=== PATIENT | male | born 1995 | race Caucasian/White ===

== ENCOUNTER 2016-05-14 20:10 | Observation (INO) | payer OTHER ==
[~2016-05-14] VITALS: Ht 200.7 cm; Wt 157.9 kg
[2016-05-14] MEDS ORDERED: KETOROLAC TROMETHAMINE 30 MG/ML VIAL IV STA (21:31)
[2016-05-14] MEDS ORDERED: SODIUM CHLORIDE 0.9% 1000ML 1,000 ML IV STA (21:31)
[2016-05-14] MEDS ORDERED: ONDANSETRON INJ 2 MG/ML 2 ML VIAL IV STA (21:31)
[2016-05-14 21:48] LABS: BASO % 0.6 %; BASO ABS # 0.07 K/uL (0-0.2); COMPLETE YES; EOS % 3.2 %; HEMATOCRIT 44.2 % (42-52); IG% 0.3 %; LYMPH % 28.9 %; LYMPH ABS # 3.28 K/uL (1.2-3.4); MEAN CELL VOLUME 79.4 fL (80-100); MEAN CORPUSCULAR HGB CONC 35.3 g/dl (32-36); MONO % 9.2 %; NEUT % 57.8 %; PLATELET COUNT 230 K/uL (130-400); RED BLOOD COUNT 5.57 M/uL (4.7-6.1); WHITE BLOOD COUNT 11.36 K/uL (4.8-10.8)
--- NOTE | 2016-05-14 21:58 | DIAGNOSTIC IMAGING REPORT ---
CT SCAN OF THE ABDOMEN AND PELVIS WITHOUT CONTRAST CLINICAL HISTORY: Right flank pain COMPARISON STUDY: No previous studies for comparison. TECHNIQUE: CT scan of the abdomen and pelvis was performed from the lung bases to the proximal femurs. Images are reviewed in the axial, sagittal, and coronal planes. IV contrast was not administered for this examination. CT DOSE: 1844.68 mGy.cm FINDINGS: Lower chest: The heart is normal in size and configuration, without pericardial effusion. The lung bases and pleural spaces are clear. Liver: There is hepatic steatosis. No focal masses are visualized. Gallbladder: Unremarkable. Spleen: There is mild splenomegaly (14 cm) Pancreas: Unremarkable. Adrenal glands: Unremarkable. Kidneys: No renal, ureteral, or bladder calculi are visualized. Bowel: There are no transition zones indicate bowel obstruction. There is periappendiceal edema. The appendix measures 9 mm. In the setting of right sided abdominal pain, the findings are indicative of acute appendicitis. Peritoneum: There is no intraperitoneal free air or abdominal ascites. Vasculature: The abdominal aorta is normal in course and caliber. Adenopathy: There are mildly prominent mesenteric lymph nodes. There is also a prominent lymph node in the gastrohepatic ligament region. These are likely reactive. Pelvic viscera: The bladder, and pelvic viscera are unremarkable. Skeletal structures: There are bilateral supra-acetabular deformities. These appear old. IMPRESSION: 1. CT findings indicative of acute appendicitis. Surgical consultation is recommended 2. No evidence of bowel obstruction. No evidence of free air 3. Hepatic steatosis. Mild splenomegaly. Electronically signed by: Marcelino Chery M.D. 05/14/2016 9:57 PM Dictated Date/Time: 05/14/2016 9:52 PM
[2016-05-14 22:04] LABS: ALT/SGPT 103 U/L (12-78); BLOOD UREA NITROGEN 16 mg/dl (7-18); BUN/CREATININE RATIO 12.2 (10-20); CARBON DIOXIDE 28 mmol/L (21-32); CHLORIDE 106 mmol/L (98-107); GLUCOSE 89 mg/dl (70-99); SODIUM 142 mmol/L (136-145)
[2016-05-14 22:07] LABS: ALKALINE PHOSPHATASE 64 U/L (45-117); AST/SGOT 34 U/L (15-37)
[2016-05-14] MEDS ORDERED: CEFOXITIN SOD 2 GM VIAL IV STA ×2 (22:09→22:54)
--- NOTE | 2016-05-14 22:55 | EMERGENCY ROOM VISIT NOTE ---
History Report prepared by Inga: Morena Vital Under the Supervision of: Dr. Thomas Jamison M.D. First contact with patient: 21:26 Chief Complaint: ABDOMINAL PAIN Stated Complaint: COMPLETE RT SIDE ABDOMINAL PAIN Nursing Triage Summary: pt c/o lower right abd pain started yesterday History of Present Illness The patient is a 21 year old male who presents to the Emergency Room with complaints of intermittent deep right sided abdominal pain beginning yesterday. The patient states that his pain is now radiating into his back and is worsened with movement and deep breaths. He complains of back pain. He notes that he started an intermittent fasting diet this week and has been drinking carbonated water and coffee which is unusual for him. Source of History: patient Onset: yesterday Position: abdomen (RLQ) Quality: other (deep) Timing: intermittent Modifying Factors (Worsening): breathing, movement Associated Symptoms: + back pain Review of Systems See HPI for pertinent positives & negatives. A total of 10 systems reviewed and were otherwise negative. Past Medical & Surgical Medical Problems: (1) No Known Active Medical Problems Surgical Problems: (1) S/P appendectomy Family History No pertinent family history stated. Social History Smoking Status: Never Smoker Alcohol Use: occasionally Marital Status: single Housing Status: lives with roommate Occupation Status: [employer] student Current/Historical Medications Scheduled Ascorbic Acid (Vitamin C), 500 MG PO DAILY Multivitamin (Multivitamin), 1 TAB PO DAILY Fontanelle-3 Fatty Acids (Fish Oil), 1 CAP PO DAILY Scheduled PRN Oxycodone/Acetaminophen 5MG/325MG (Percocet 5MG/325MG), 1 TAB PO Q4H PRN for Pain Allergies Coded Allergies: POLLEN (Verified Allergy, Unknown, seasonal, 05/14/16) Physical Exam Vital Signs Date Time Temp Pulse Resp B/P Pulse Ox O2 Delivery O2 Flow Rate FiO2 05/15/16 02:15 80 13 152/73 95 Nasal Cannula 4 05/15/16 02:05 36.3 77 15 159/89 96 Nasal Cannula 4 05/15/16 01:55 86 21 161/86 92 Nasal Cannula 3 05/15/16 01:45 82 22 157/91 99 Mask 10 05/15/16 01:35 88 22 173/89 100 Mask 10 05/15/16 01:27 36.1 92 23 169/99 100 Mask 10 05/14/16 23:45 88 16 188/87 100 Room Air 05/14/16 22:37 95 21 109/105 99 Room Air 05/14/16 20:14 36.9 79 18 168/79 99 Room Air Physical Exam GENERAL: Patient is a healthy-appearing well-nourished HEAD: Normocephalic atraumatic EYES: Ocular movements intact pupils equal and react to light OROPHARYNX mucous membranes are moist no exudates present no erythema or edema present NECK: Supple no nuchal rigidity CHEST: Good equal expansion LUNGS: Clear and equal to auscultation CARDIAC: Normal S1 and S2 ABDOMEN: Soft tender to the RLQ no guarding BACK: No CVA tenderness EXTREMITIES: No pain upon palpation normal muscle strength in all groups no clubbing cyanosis or edema NEURO: Patient is following commands is answering questions appropriately. Alert and oriented x3 Cranial Nerves 2-12 grossly intact Medical Decision & Procedures ER Provider Diagnostic Interpretation: CT results as stated below per my review and radiologist interpretation: CT SCAN OF THE ABDOMEN AND PELVIS WITHOUT CONTRAST FINDINGS: Lower chest: The heart is normal in size and configuration, without pericardial effusion. The lung bases and pleural spaces are clear. Liver: There is hepatic steatosis. No focal masses are visualized. Gallbladder: Unremarkable. Spleen: There is mild splenomegaly (14 cm) Pancreas: Unremarkable. Adrenal glands: Unremarkable. Kidneys: No renal, ureteral, or bladder calculi are visualized. Bowel: There are no transition zones indicate bowel obstruction. There is periappendiceal edema. The appendix measures 9 mm. In the setting of right sided abdominal pain, the findings are indicative of acute appendicitis. Peritoneum: There is no intraperitoneal free air or abdominal ascites. Vasculature: The abdominal aorta is normal in course and caliber. Adenopathy: There are mildly prominent mesenteric lymph nodes. There is also a prominent lymph node in the gastrohepatic ligament region. These are likely reactive. Pelvic viscera: The bladder, and pelvic viscera are unremarkable. Skeletal structures: There are bilateral supra-acetabular deformities. These appear old. IMPRESSION: 1. CT findings indicative of acute appendicitis. Surgical consultation is recommended 2. No evidence of bowel obstruction. No evidence of free air 3. Hepatic steatosis. Mild splenomegaly. Electronically signed by: Marcelino Chery M.D. 05/14/2016 9:57 PM Dictated Date/Time: 05/14/2016 9:52 PM Laboratory Results 05/14/16 21:30 Red Blood Count 5.57, Mean Corpuscular Volume 79.4, Mean Corpuscular Hemoglobin 28.0, Mean Corpuscular Hemoglobin Concent 35.3, Mean Platelet Volume 10.0, Neutrophils (%) (Auto) 57.8, Lymphocytes (%) (Auto) 28.9, Monocytes (%) (Auto) 9.2, Eosinophils (%) (Auto) 3.2, Basophils (%) (Auto) 0.6, Neutrophils # (Auto) 6.57, Lymphocytes # (Auto) 3.28, Monocytes # (Auto) 1.05, Eosinophils # (Auto) 0.36, Basophils # (Auto) 0.07 05/14/16 21:30 Test 05/14/16 21:30 White Blood Count 11.36 K/uL (4.8-10.8) Red Blood Count 5.57 M/uL (4.7-6.1) Hemoglobin 15.6 g/dL (14.0-18.0) Hematocrit 44.2 % (42-52) Mean Corpuscular Volume 79.4 fL (80-100) Mean Corpuscular Hemoglobin 28.0 pg (25-34) Mean Corpuscular Hemoglobin Concent 35.3 g/dl (32-36) Platelet Count 230 K/uL (130-400) Mean Platelet Volume 10.0 fL (7.4-10.4) Neutrophils (%) (Auto) 57.8 % Lymphocytes (%) (Auto) 28.9 % Monocytes (%) (Auto) 9.2 % Eosinophils (%) (Auto) 3.2 % Basophils (%) (Auto) 0.6 % Neutrophils # (Auto) 6.57 K/uL (1.4-6.5) Lymphocytes # (Auto) 3.28 K/uL (1.2-3.4) Monocytes # (Auto) 1.05 K/uL (0.11-0.59) Eosinophils # (Auto) 0.36 K/uL (0-0.5) Basophils # (Auto) 0.07 K/uL (0-0.2) RDW Standard Deviation 37.2 fL (36.4-46.3) RDW Coefficient of Variation 12.9 % (11.5-14.5) Immature Granulocyte % (Auto) 0.3 % Immature Granulocyte # (Auto) 0.03 K/uL (0.00-0.02) Anion Gap 8.0 mmol/L (3-11) Est Creatinine Clear Calc Drug Dose 150.5 ml/min Estimated GFR () 89.8 Estimated GFR (Non- 77.5 BUN/Creatinine Ratio 12.2 (10-20) Calcium Level 9.0 mg/dl (8.5-10.1) Total Bilirubin 0.5 mg/dl (0.2-1) Direct Bilirubin < 0.1 mg/dl (0-0.2) Aspartate Amino Transf (AST/SGOT) 34 U/L (15-37) Alanine Aminotransferase (ALT/SGPT) 103 U/L (12-78) Alkaline Phosphatase 64 U/L (45-117) Total Protein 7.7 gm/dl (6.4-8.2) Albumin 4.1 gm/dl (3.4-5.0) Lipase 135 U/L (73-393) Labs reviewed by ED physician. Medications Administered Medications (Trade) Dose Ordered Sig/Selvin Route Start Time Stop Time Status Last Admin Dose Admin Sodium Chloride (Nss 1000ml) 1,000 ml @ 999 mls/hr Q1H1M STAT IV 05/14/16 21:31 05/14/16 22:31 DC 05/14/16 21:39 999 MLS/HR Cefoxitin Sodium (Mefoxin IV) 2,000 mg NOW STAT IV 05/14/16 22:09 05/14/16 22:10 DC 05/14/16 22:32 2,000 MG Lidocaine/ Epinephrine 20 ml 20 ml STK-MED ONCE .ROUTE 05/14/16 23:22 05/14/16 23:23 DC 05/15/16 01:10 11 ML Lactated Ringer's (Lr 1000ml) 1,000 ml @ 50 mls/hr Q20H IV 05/15/16 01:30 05/15/16 10:47 DC 05/15/16 04:31 125 MLS/HR Fentanyl Citrate (Fentanyl Inj) 100 mcg STK-MED ONCE .ROUTE 05/15/16 01:49 05/15/16 01:50 DC 05/15/16 01:50 25 MCG Labetalol HCl (Normodyne IV) 5 mg STK-MED ONCE IV 4/1/17 01:59 05/15/16 02:00 DC 05/15/16 01:53 5 MG ED Course 2125: Past medical records reviewed. The patient was evaluated in room A12. A complete history and physical examination was performed. 2130: Zofran Inj 4mg IV, Toradol Inj 30mg IV, Sodium Chloride 1000 ml @ 999 mls/ hr IV. 2146: I discussed the patient's case with Dr. Moisés Dickens, he has agreed to evaluate the patient. 2208: Mefoxin IV 2000mg IV. 2214: I spoke to the patients mother. 2336: I discussed the patient's case with Dr. Gann, He has agreed to evaluate the patient for further management and care. 2340: Upon reexamination the patient is hemodynamically stable. I discussed results and treatment plan with the patient. He verbalizes agreement and understanding. I spoke with Dr. Gann from [facility]. The patient will be evaluated for further management. Medical Decision Differential diagnosis: Etiologies such as appendicitis, diverticulitis, PUD, biliary pathology, UTI, pancreatitis, obstruction, mesenteric ischemia, aortic pathology, infections, inflammatory bowel disease, renal colic, as well as others were entertained. This is a 21-year-old male who presents emergency department complaining of generalized right lower quadrant abdominal pain. The patient was sent for CAT scan abdomen and pelvis which was concerning for acute appendicitis. Patient does have an elevation in his white blood count. I did discuss the case with the surgeon service who agreed to admit the patient. I also did discuss the case with the patient's mother. Consults Time Called: 2329 Consulting Physician: Dr. Gann - General Surgery Returned Call: 2335 I discussed the patient's case with Dr. Gann, he has agreed to evaluate the patient for further management and care. Impression Primary Impression: Appendicitis Scribe Attestation The scribe's documentation has been prepared under my direction and personally reviewed by me in its entirety. I confirm that the note above accurately reflects all work, treatment, procedures, and medical decision making performed by me. Departure Information Dispostion Being Evaluated By Surgeon Prescriptions Oxycodone/Acetaminophen 5MG/325MG (PERCOCET 5MG/325MG) Tab 1 TAB PO Q4H Y for Pain for 5 Days, #20 TAB PAIN Prov: David Gann M.D. 05/15/16 Referrals No Doctor, Assigned (PCP) Patient Instructions [facility] Problem Qualifiers Primary Impression: Appendicitis Appendicitis type: acute appendicitis Acute appendicitis type: unspecified acute appendicitis type Qualified Codes: K35.80 - Unspecified acute appendicitis
[2016-05-14] MEDS ORDERED: LACTATED RINGER'S 1000ML 1,000 ML IV SCH (23:00)
[2016-05-14] MEDS ORDERED: MULT-506 PO (23:01)
[2016-05-14] MEDS ORDERED: ASCA500 PO (23:01)
[2016-05-14] MEDS ORDERED: OMEGCAP2 PO (23:01)
--- NOTE | 2016-05-14 23:02 | History & Physical Bridge Note ---
H&P Re-Evaluation Bridge Note: I have examined the patient, reviewed the History & Physical and in the interval since the performance of the History & Physical I have noted the following changes of clinical significance: No changes noted h and p dictated 11 pm in ER dx acute appandicitis plan lap appy possible open. confirmation number [id number] dictated ext 100 stat line, surgery called nursing ward supervisor 10: 55
[2016-05-14] MEDS ORDERED: ONDANSETRON INJ 2 MG/ML 2 ML VIAL ONE (23:21)
[2016-05-14] MEDS ORDERED: NEOSTIGMINE METHYLSULFATE 5 MG/5 ML SYR ONE (23:21)
[2016-05-14] MEDS ORDERED: PROPOFOL IV EMULSION 10 MG/ML 20 ML VIAL IV ONE (23:21)
[2016-05-14] MEDS ORDERED: MIDAZOLAM HCL 1 MG/ML 2ML VIAL ONE (23:21)
[2016-05-14] MEDS ORDERED: GLYCOPYRROLATE INJ 0.2 MG/ML VIAL ONE (23:21)
[2016-05-14] MEDS ORDERED: ROCURONIUM BROMIDE 10 MG/ML 5 ML VIAL ONE (23:21)
[2016-05-14] MEDS ORDERED: SUCCINYLCHOLINE CHLORIDE 20 MG/ML 10 ML VIAL IV ONE (23:21)
[2016-05-14] MEDS ORDERED: FENTANYL CITRATE INJ 50 MCG/1 ML 2 ML VIAL ONE (23:21)
[2016-05-14] MEDS ORDERED: LIDOCAINE/EPINEPHRINE 1% 20 ML VIAL ONE (23:22)
[2016-05-14] MEDS ORDERED: FENTANYL CITRATE INJ 50 MCG/1 ML 2 ML VIAL IV PRN (23:30)
[2016-05-14] MEDS ORDERED: ONDANSETRON INJ 2 MG/ML 2 ML VIAL IV PRN (23:30)
[2016-05-14] MEDS ORDERED: HYDROmorphone INJ 1 MG/ML SYR IV PRN (23:30)
[2016-05-14] MEDS ORDERED: ATROPINE SULFATE 0.1 MG/ML 5ML SYR IV PRN (23:30)
[2016-05-14] MEDS ORDERED: EpHEDrine SULFATE INJ 50 MG/ML AMP IV PRN (23:30)
[2016-05-15] VITALS (8 sets, daily range): BP systolic 128–152; BP diastolic 67–84; PULSE 60–101; TEMP 36.4–36.7; O2SAT 95–98; Ht 200.7 cm; Wt 157.9 kg
--- NOTE | 2016-05-15 00:06 | HISTORY & PHYSICAL EXAMINATION ---
DATE OF ADMISSION: 05/14/2016 SUMMARY: I am seeing Sathish in the ER at 10:55 in the evening after I was called for acute appendicitis. This is a 21-year-old young man from [place], student here, who developed some abdominal pain last evening, progressively got worse. In fact, he and his friend are here, stated they did not think much of it, to the point that at about 2:30 this afternoon, they went to [employer] and had a good lunch. The pain progressively became worse, and came into the Emergency Room with the findings by CAT scan compatible with acute appendicitis. PAST MEDICAL HISTORY: Really unremarkable except he had some hand surgery. MEDICATIONS: He takes no medicines. ALLERGIES: HE HAS AN ALLERGY TO POLLENS. Other than that he enjoys general good health except somewhat overweight, BMI of approximately 40. PHYSICAL EXAMINATION: GENERAL: At this time revealed Sathish to be a little upset because he is afraid of being placed under general anesthetic. HEENT: Head: Normocephalic. Eyes: PERRLA. He does have a larson. NECK: There is no cervical lymphadenopathy. HEART: Normal sinus. LUNGS: Clear. ABDOMEN: Soft, but has exquisite tenderness and rebound in right lower quadrant. EXTREMITIES: Grossly normal. VITAL SIGNS: His last vitals showed a temperature of 36.9, his pulse is 95, respirations 21, his last blood pressure is 109/105. He states he does have some hypertension and this is due to his weight. LABORATORY DATA: Showed a white count of 11.38 with a left shift, hemoglobin 15.6. BUN 16, creatinine 1.30. The imaging as stated, some reactive lymph nodes, does have appendicitis which measures approximately 9 mm with periappendiceal edema. PLAN: At this time is to proceed with laparoscopic appendectomy, possible open. Risks and complications of surgery were explained to patient and I even spoke with the mother by phone and they would like to proceed accordingly. ADDENDUM: On a CAT scan, there is prominent mesenteric lymph nodes. They felt that this possibly reactive in nature. MTDD
[2016-05-15] MEDS ORDERED: HYDROmorphone INJ 2 MG/ML SYR/VIAL ONE (00:27)
--- NOTE | 2016-05-15 01:21 | [facility] Post Operative Brief Note ---
Immediate Operative Summary Operative Date May 15, 2016. Pre-Operative Diagnosis Acute Appendicitis Post-Operative Diagnosis Acute Appendicitis nodular appearance fatty tissue ? omental tissue around appendix Procedure(s) Performed Laparoscopic Appendectomy excision fatty tisssue Surgeon Dr. David Gann Breeder Service Technician Surgeon(s) None Estimated Blood Loss 10 ML Specimens Permanent Specimen A: Appendix B: Omentum Tissue
[2016-05-15] MEDS ORDERED: OXYCODONE/ACETAMINOPHEN 5-325 TAB PO PRN (01:30)
[2016-05-15] MEDS ORDERED: LACTATED RINGER'S 1000ML 1,000 ML IV SCH (01:30)
[2016-05-15] MEDS ORDERED: ONDANSETRON INJ 2 MG/ML 2 ML VIAL IV PRN (01:30)
[2016-05-15] MEDS ORDERED: MoRPHine SULFATE 4 MG/ML 1 ML CARP\\VIAL IV PRN (01:30)
[2016-05-15] MEDS ORDERED: LABETALOL HCL IV 5 MG/ML 20ML IV PRN (01:45)
[2016-05-15] MEDS ORDERED: FENTANYL CITRATE INJ 50 MCG/1 ML 2 ML VIAL ONE (01:49)
[2016-05-15] MEDS ORDERED: LABETALOL HCL IV 5 MG/ML 20ML IV ONE (01:59)
--- NOTE | 2016-05-15 02:08 | Anesthesiology Progress Note ---
Anesthesia Post Op Note Date & Time May 15, 2016 at 02:07 Vital Signs Pain Intensity: 0 Vital Signs Past 12 Hours Date Time Temp Pulse Resp B/P Pulse Ox O2 Delivery O2 Flow Rate FiO2 05/15/16 01:55 86 21 161/86 92 Nasal Cannula 3 05/15/16 01:45 82 22 157/91 99 Mask 10 05/15/16 01:35 88 22 173/89 100 Mask 10 05/15/16 01:27 36.1 92 23 169/99 100 Mask 10 05/14/16 23:45 88 16 188/87 100 Room Air 05/14/16 22:37 95 21 109/105 99 Room Air 05/14/16 20:14 36.9 79 18 168/79 99 Room Air Notes Mental Status: alert / awake / arousable, participated in evaluation Pt Amnestic to Procedure: Yes Nausea / Vomiting: adequately controlled Pain: adequately controlled Airway Patency, RR, SpO2: stable & adequate BP & HR: stable & adequate Hydration State: stable & adequate Anesthetic Complications: no major complications apparent Given that patient has risk factors for obstructive sleep apnea but has never been formally tested, he will be kept on a continuous pulse oximetry on the floor along with supplemental NC oxygen.
[2016-05-15] MEDS ORDERED: MoRPHine SULFATE 4 MG/ML 1 ML CARP\\VIAL ONE (02:58)
[2016-05-15] MEDS ORDERED: IV FLUIDS COMPLETED PRN (03:30)
[2016-05-15] MEDS: CEFOXITIN IV 2,000 MG in DEXTROSE 5% 50ML 50 ML IV SCH ×2 (04:31→09:49)
[2016-05-15] MEDS ORDERED: OXYC-57 PO (07:40)
--- NOTE | 2016-05-15 07:49 | Discharge Instructions ---
Discharge Instructions Date of Service May 15, 2016. Visit Reason for Visit: S/P Appendectomy Discharge Discharge Diagnosis / Problem: s/p lap appy Discharge Goals Goal(s): Decrease discomfort Activity Recommendations Activity Limitations: per Instructions/Follow-up section Lifting Limitations: no more than 10 pounds Exercise/Sports Limitations: as tolerated May Resume Sexual Activity: after one week Shower/Bathe: tomorrow Driving or Machine Use: resume 3 days after discharge no lifting greater than 10 lbs for one week Anesthesia . Post Anesthesia Instructions: If you have had General Anesthesia or IV Sedation: * Do not drive today. * Resume driving when surgeon permits. * Do not make important decisions or sign legal documents today. * Call surgeon for: 1. Temperature elevations greater than 101 degrees F. 2. Uncontrollable pain. 3. Excessive bleeding. 4. Persistent nausea and vomiting. 5. Medication intolerance (nausea, vomiting or rash). * For nausea and vomiting use only clear liquids such as: tea, soda, bouillon until nausea subsides, then gradually increase diet as tolerated. * If you have any concerns or questions, call your surgeon's office. If physician is unavailable and it is an emergency, call 911 or go to the nearest emergency room. . Instructions / Follow-Up Instructions / Follow-Up call [phone] for any problems and f/u in [address] [place] [address] , Dr Gann [facility] general surgery Diet Recommendations Recommended Home Diet: resume previous diet Procedures Procedures Performed: Laparoscopic Appendectomy excision fatty tisssue Pending Studies Studies pending at discharge: no Medical Emergencies . Who to Call and When: Medical Emergencies: If at any time you feel your situation is an emergency, please call 911 immediately. . Non-Emergent Contact Non-Emergency issues call your: Primary Care Provider . . "Provider Documentation" section prepared by David Gann.
--- NOTE | 2016-05-15 09:50 | SURGERY PROGRESS NOTE ---
DATE: 05/15/2016 SUBJECTIVE: Sathish is approximately 10 hours postoperative of laparoscopic appendectomy. He is alert, coherent and in no distress. He is still needing O2 supplementations to maintain his saturation. He does suffer from sleep apnea. Other than that, he is alert, coherent. Intraoperative findings were discussed with him. His last vitals showed him a temperature of 36.6, pulse 60, respirations 16, blood pressure 147/76, O2 sats 98 on 4 liters. His abdomen is completely benign. The trocar sites are healing well. There is minimal serous drainage from the Steri-Strips. At this point, the patient can probably go home later today if his oxygenation is sufficient, he is tolerating a diet. Instructions were written regarding wound care, diet, activity and medicine, follow up in the office in approximately 1 week.
--- NOTE | 2016-05-15 11:15 | OPERATIVE REPORT ---
DATE OF OPERATION: 05/15/2016 PREOPERATIVE DIAGNOSIS: Acute appendicitis. POSTOPERATIVE DIAGNOSIS: Same with questionable omental or epiploic infarct. PROCEDURE: Laparoscopic appendectomy, resection periappendiceal fat. SURGEON: Dr. Gann. OPERATION AND FINDINGS: SUMMARY: The patient was brought into the operating room theater. The abdomen was prepped with Betadine solution and properly draped. We made a small transverse incision supraumbilically, inserted Veress needle followed by CO2 followed by 5 mm trocar. Point of entry inspected and no injury identified. Under direct visualization, we then placed the patient in reverse Trendelenburg rotated to the left. A 5 mm right upper quadrant port site was placed. We could identify the cecum easily. There was omentum and looked like a tongue of omentum down towards the base of the cecum. As we freed this up the tongue of omentum was actually coming to adherence through a fatty tissue just lateral and inferior to the cecum away from the appendix. I was not sure if this was the omentum that had gone down at that time and eventually we would resect this tissue and it may have been an infarcted epiploic or infarcted omentum, just a small piece, probably about 2 cm or so in size. But having said that, we freed this up mostly by first placing a 11 mm epigastric port and then repositioned the 5 mm port in the right upper quadrant down to about long-term between the symphysis pubis and the umbilical tissue. The patient was quite obese. She had BMI of 40 nearly. With these maneuvers we were then able to identify the appendix. We elevated up the appendix which was acutely inflamed. We created a window between the appendix and the cecum sufficiently enough that we were able to use a fire blue load of the LUISA. Actually we took a part of the cecum at the base of the appendix. We used another load to complete the division. At this point we used another blue load to divide the mesentery to the appendix. We also used some 10 mm clips to make sure to secure the tissue in that area. We had slight oozing, but not significant. The appendix was then placed in an Endopouch and taken out through the epigastric port. We then repositioned the 11 mm trocar. At this point our attention was turned to that lobulated mass that was in the fatty tissue around the appendix. I was not sure if it was an infarcted omentum or possibility of an epiploic but we were able then to free this up using cautery staying away from the cecal wall and also clipped. Eventually we placed in no new clean Endopouch and taken out intact. I would open it at the end of procedure and it looked like it may have been infarcted epiploic with a twist in it. The right lower quadrant then was suctioned out copiously. There was no evidence of any bleeding. We checked hemostasis and was satisfactory. At this point individual trocars removed, last umbilical trocar. Wounds were closed with fascial stitch of 0 PDS x2 from the umbilical area, 4-0 Monocryl. Steri-Strips applied. The procedure was tolerated well. Estimated blood loss approximately 10 mL. The patient was taken to recovery room in good condition. I attest to the content of the Intraoperative Record and any orders documented therein. Any exceptions are noted below. STORMD
--- NOTE | 2016-05-18 10:42 | DISCHARGE SUMMARY ---
PRIMARY DISCHARGE DIAGNOSIS: Acute appendicitis. PROCEDURE PERFORMED: Laparoscopic appendectomy. HOSPITAL COURSE: The patient is a 21-year-old male who presented to the Emergency Department with approximately 24-hour history of right lower quadrant pain. His white count was 11,000. CT was consistent with acute appendicitis. He was taken to the operating room overnight for laparoscopic appendectomy. The procedure was well tolerated. He was transferred to the surgical floor. In the morning he was tolerating advancing diet and oral analgesics. His abdomen was benign. Incisions were clean and dry. He was stable for discharge home. DISCHARGE INSTRUCTIONS: Discharge home. Follow up with Dr. Gann in 1 week. DISCHARGE MEDICATIONS: Percocet 1 tablet every 4 hours as needed and resume home supplements, vitamin C, daily multivitamin and fish oil tablet.
== END 2016-05-15 10:38 | disposition home or self-care (01) ==
LOC: ENRESERVDT → ENRESERVTM → C.EDB 20:12 → C.3E 05-15 02:35
PROVIDERS: ADMIT Surgery; ATTEND Surgery
DX: K35.80 Unspecified acute appendicitis (principal); E66.9 Obesity, unspecified; Z68.41 Body mass index [BMI] 40.0-44.9, adult; G47.30 Sleep apnea, unspecified